=== PATIENT | male | born 1965 | race Caucasian/White ===

== ENCOUNTER → 2021-01-22 | Outpatient (REF) | payer BC | LOC: M LAB REF 16:52 | PROVIDERS: ATTEND Internal Medicine Nephrology | DX: N18.31 Chronic kidney disease, stage 3a (principal); E83.42 Hypomagnesemia ==

== ENCOUNTER → 2022-04-23 | Outpatient (REF) | payer BC ==
[2022-04-23 18:28] LABS: MALB URINE SIEMENS 16.7 MG/L; MAU/CREAT RATIO 11.8 MCG/MG (0.0-30.0)
== END ==
LOC: M LAB REF 16:53
PROVIDERS: ATTEND Nurse Practitioner Family
DX: E11.65 Type 2 diabetes mellitus with hyperglycemia (principal)

== ENCOUNTER → 2023-08-26 | Outpatient (CLI) | payer BC | LOC: M PLAIMG 09:18 | PROVIDERS: ATTEND Otolaryngology | DX: R19.6 Halitosis (principal); R43.8 Other disturbances of smell and taste; H70.93 Unspecified mastoiditis, bilateral ==

== ENCOUNTER → 2023-10-15 | Outpatient (REF) | payer BC ==
[2023-10-15 15:59] LABS: CREATININE, URINE 46.7 MG/DL; MALB URINE SIEMENS < 3.0 MG/L; MAU/CREAT RATIO 6.4 MCG/MG (0.0-30.0)
== END ==
LOC: M LAB REF 14:54
PROVIDERS: ATTEND Nurse Practitioner Family
DX: E11.65 Type 2 diabetes mellitus with hyperglycemia (principal)

== ENCOUNTER → 2024-09-10 | Outpatient (REF) | payer BC, OTHER | LOC: M SFHCDERM 17:15 | PROVIDERS: ATTEND Physician Assistant | DX: D22.39 Melanocytic nevi of other parts of face (principal) ==